=== PATIENT | female | born 1935 | race Caucasian/White ===

== ENCOUNTER 2016-12-22 13:14 | Inpatient (IN) | payer OTHER ==
[2016-12-10 08:44] VITALS: BMI 24.0
--- NOTE | 2016-12-10 09:27 | PAT Medication Instructions ---
Service Date Dec 10, 2016. Current Home Medication List Acetaminophen (Tylenol Arthritis Ext Rel), 1,300 MG PO PRN Amlodipine (Norvasc), 10 MG PO QAM Aspirin (Aspirin Ec), 81 MG PO QAM Atorvastatin (Lipitor), 80 MG PO HS Doxycycline Monohydrate (Monodox), 100 MG PO BID Furosemide (Lasix), 10 MG PO QAM Insulin Detemir (Levemir), 40 UNITS SC QPM Losartan Potassium (Cozaar), 100 MG PO QAM Metoprolol Succinate (Toprol Xl), 50 MG PO QAM Multivitamins/Minerals (Mvi With Minerals), 1 TAB PO QAM Omeprazole (Prilosec), 20 MG PO QAM Psyllium (Metamucil), 1 DOSE PO PRN [Calcium], 600 MG PO BID [Humalog], 16-30 UNITS SC TIDM [Leptin], 160 UNITS INJ QAM [Tricor], 96 MG PO QAM Medication Instructions For Your Scheduled Surgery Leptin 160 UNITS INJ QAM (check with the [facility] for instructions; bring with you to hospital on day of surgery) - Hold the following medications 24 hours prior to surgery: Tricor, 96 MG PO QAM - Hold the following medications the morning of surgery: Humalog 16-30 UNITS SC TIDM Calcium, 600 MG PO BID Psyllium (Metamucil), 1 DOSE PO PRN Multivitamins/Minerals (Mvi With Minerals), 1 TAB PO QAM Losartan Potassium (Cozaar), 100 MG PO QAM Furosemide (Lasix), 10 MG PO QAM Doxycycline Monohydrate (Monodox), 100 MG PO BID (can take after surgery) - Take the following medications the morning of surgery with a sip of water: Omeprazole (Prilosec), 20 MG PO QAM Metoprolol Succinate (Toprol Xl), 50 MG PO QAM Amlodipine (Norvasc), 10 MG PO QAM Acetaminophen (Tylenol Arthritis Ext Rel), 1,300 MG PO PRN (if needed) Aspirin (Aspirin Ec), 81 MG PO QAM - Take the following medications as scheduled the night before surgery: Calcium, 600 MG PO BID Insulin Detemir (Levemir), 40 UNITS SC QPM Atorvastatin (Lipitor), 80 MG PO HS Acetaminophen (Tylenol Arthritis Ext Rel), 1,300 MG PO PRN Doxycycline Monohydrate (Monodox), 100 MG PO BID If you have any questions please call us at [phone] or [phone] ( Anna) or [phone]
[2016-12-10 10:56] LABS: URINE APPEARANCE CLEAR (CLEAR); URINE BILIRUBIN NEG (NEG); URINE COLOR YELLOW; URINE NITRITE NEG (NEG); URINE PH 6.5 (4.5-7.5); URINE SPECIFIC GRAVITY 1.008 (1.000-1.030); UROBILINOGEN NEG (NEG)
[2016-12-10 11:04] LABS: BASO % 0.9 %; BASO ABS # 0.07 K/uL (0-0.2); COMPLETE YES; HEMATOCRIT 36.1 % (37-47); IG% 0.3 %; LYMPH % 14.8 %; LYMPH ABS # 1.13 K/uL (1.2-3.4); MEAN CELL VOLUME 86.2 fL (80-100); MEAN CORPUSCULAR HEMOGLOBIN 28.4 pg (25-34); MEAN PLATELET VOLUME 10.3 fL (7.4-10.4); MONO % 8.1 %; NEUT % 72.9 %; PLATELET COUNT 235 K/uL (130-400); RED BLOOD COUNT 4.19 M/uL (4.2-5.4); WHITE BLOOD COUNT 7.64 K/uL (4.8-10.8)
[2016-12-10 11:08] LABS: MANUAL MICROSCOPIC REQUIRED? NO; REVIEW REQ? NO
--- NOTE | 2016-12-21 08:35 | HISTORY & PHYSICAL EXAMINATION ---
DATE OF ADMISSION: 12/22/2016 HISTORY OF PRESENT ILLNESS: The patient presents to our office with a complaint of buttock pain on the left, extending down the lateral thigh to the anterior tibia. It is quite limiting in nature. It started over the summertime of 2015. She has trialed physical therapy which exacerbated her symptoms. She takes Tylenol for pain control. She has trialed an epidural injection which "took the edge off." Denies weakness or paresthesias or tingling of the lower extremities. Denies bowel or bladder dysfunction. Denies change in gait. PAST MEDICAL HISTORY: Significant for irregular heartbeat, sleep apnea with use of CPAP machine at home, diabetes requiring insulin, acid reflux, arthritis. SURGICAL HISTORY: Significant for carpal tunnel release and a bladder tuck. ALLERGIES: None listed. MEDICATIONS: Include: 1. Dymgmgp217 units once a day. 2. Humalog insulin 16-20 units 3 times a day. 3. Levemir 40 units at bedtime. 4. Omeprazole 20 mg a day. 5. Lipitor 80 mg a day. 6. Toprol-XL 50 mg a day. 7. Losartan potassium 100 mg a day. 8. Amlodipine 10 mg a day. 9. Tricor 96 mg a day. 10. Multivitamin daily. 11. Calcium 600 mg once a day. 12. Aspirin 81 mg a day. 13. Vitamin E 400 mg a day. 14. Metamucil daily. SOCIAL HISTORY: She is retired. Denies alcohol. Denies tobacco use. REVIEW OF SYSTEMS: Significant for back and left leg pain, difficulty walking. FAMILY HISTORY: Noncontributory. PHYSICAL EXAMINATION: VITAL SIGNS: She is 5 feet 1, 126 pounds. HEENT: Speech appropriate. CARDIOPULMONARY: No gross abnormalities. ABDOMEN: Soft, nontender. GENITOURINARY: Deferred. NEUROLOGIC: Cranial nerves II-XII grossly intact. MUSCULOSKELETAL: She has no atrophy of the leg. Strength is intact in bilateral lower extremities. She ambulates with a steady gait. No evidence of ankle clonus. ASSESSMENT: Herniated nucleus pulposus L4-L5 on the left. PLAN: At this point in time, she has failed conservative therapy and continues to struggle with pain and is interested in pursuing surgical intervention. Surgery would require lumbar laminectomy L4-L5 on the left. Risks, benefits, pros, cons, and alternatives were outlined in detail. She would like to proceed with the above-mentioned surgical planning. INOCENCIA
[2016-12-22] VITALS (7 sets, daily range): BP systolic 123–156; BP diastolic 51–66; PULSE 58–74; TEMP 34.8–36.5; O2SAT 91–100; BMI 24.0
[~2016-12-22] VITALS: Ht 154.9 cm; Wt 58.1 kg
--- NOTE | 2016-12-22 07:29 | History & Physical Bridge Note ---
H&P Re-Evaluation Bridge Note: I have examined the patient, reviewed the History & Physical and in the interval since the performance of the History & Physical I have noted the following changes of clinical significance: No changes noted
[~2016-12-22 13:14] MED LIST: ACET1TAB84 PO; AMLO-114 PO; ASPI81TA28 PO; ATOR-26 PO; CALC-51 PO; CEFAZOLIN 1000MG/55 ML D5W IV SCH; DOXY100C76 PO; FURO-85 PO; HUMALOG SC; LACTATED RINGER'S 1000ML 1,000 ML IV SCH; LOSA1TAB38 PO; LVMI SC; METO-217 PO; MULT-513 PO; PRLSR20 PO; PSYL0.524 PO; TRICOR PO; [UNRECOGNIZED DRUG - OTHER] INJ
[2016-12-22] MEDS ORDERED: BUPIVACAINE/EPINEPHRINE 0.5% MPF 1:200,000 30 ML VIAL ONE (15:18)
[2016-12-22] MEDS ORDERED: BACITRACIN 50000 UNIT VIAL ONE (15:18)
[2016-12-22] MEDS ORDERED: ONDANSETRON INJ 2 MG/ML 2 ML VIAL ONE (15:26)
[2016-12-22] MEDS ORDERED: MIDAZOLAM HCL 1 MG/ML 2ML VIAL ONE (15:26)
[2016-12-22] MEDS ORDERED: LIDOCAINE HCL 2% 2 ML VIAL (20MG/ML) ONE (15:26)
[2016-12-22] MEDS ORDERED: ROCURONIUM BROMIDE 10 MG/ML 5 ML VIAL ONE (15:26)
[2016-12-22] MEDS ORDERED: DEXAMETHASONE SOD INJ 4 MG/ML VIAL ONE (15:26)
[2016-12-22] MEDS ORDERED: GLYCOPYRROLATE INJ 0.2 MG/ML VIAL ONE (15:26)
[2016-12-22] MEDS ORDERED: PROPOFOL IV EMULSION 10 MG/ML 20 ML VIAL IV ONE (15:26)
[2016-12-22] MEDS ORDERED: NEOSTIGMINE METHYLSULFATE 1 MG/ML 10ML VIAL ONE (15:26)
[2016-12-22] MEDS ORDERED: FENTANYL CITRATE INJ 50 MCG/1 ML 2 ML VIAL ONE (15:26)
[2016-12-22] MEDS ORDERED: ATROPINE SULFATE 0.1 MG/ML 5ML SYR IV PRN (15:30)
[2016-12-22] MEDS ORDERED: ONDANSETRON INJ 2 MG/ML 2 ML VIAL IV PRN ×2 (15:30→17:00)
[2016-12-22] MEDS ORDERED: HYDROmorphone INJ 1 MG/ML SYR IV PRN ×2 (15:30→17:00)
[2016-12-22] MEDS ORDERED: FENTANYL CITRATE INJ 50 MCG/1 ML 2 ML VIAL IV PRN (15:30)
[2016-12-22] MEDS ORDERED: EpHEDrine SULFATE INJ 50 MG/ML AMP IV PRN (15:30)
[2016-12-22] MEDS ORDERED: NURSING VERBAL MED ORDER ONE ×2 (15:45→18:30)
[2016-12-22] MEDS ORDERED: CLINDAMYCIN 600 MG/54 ML D5W 54 ML IV SCH (16:00)
--- NOTE | 2016-12-22 16:48 | [facility] Post Operative Brief Note ---
Immediate Operative Summary Operative Date Dec 22, 2016. Pre-Operative Diagnosis Herniated nucleus pulposus L4- L5 on the left Post-Operative Diagnosis Same Procedure(s) Performed L4-L5 Lumbar Laminectomy, Decompression, Coflex at L4-L5 Surgeon Dr Jacinto Turkey Roll Maker Surgeon(s) Lg De La Torre PA-C Estimated Blood Loss 25 ml Findings hnp Specimens none
--- NOTE | 2016-12-22 16:56 | DIAGNOSTIC IMAGING REPORT ---
INTRAOPERATIVE FLUOROSCOPIC IMAGE OF THE LUMBAR SPINE CLINICAL HISTORY: Coflex. COMPARISON STUDY: No previous studies for comparison. Fluoroscopy time: 5.9 seconds. FINDINGS: A single lateral intraoperative fluoroscopic image demonstrates placement of a surgical instrument consistent with Coflex at the L4-L5 level. IMPRESSION: Intraoperative fluoroscopic image demonstrating placement of a Coflex device at the L4-L5 level. Electronically signed by: Austin Kirkpatrick M.D. 12/22/2016 4:55 PM Dictated Date/Time: 12/22/2016 4:52 PM
[2016-12-22] MEDS ORDERED: FLOSEAL HEMOSTATIC MATRIX 10ML TOP ONE (16:59)
[2016-12-22] MEDS ORDERED: MAGNESIUM HYDROXIDE SUSP 30 ML UDC PO PRN (17:00)
[2016-12-22] MEDS ORDERED: ACETAMINOPHEN 325 MG TAB PO PRN (17:00)
[2016-12-22] MEDS ORDERED: OXYCODONE HCL IR 5 MG TAB (IMMEDIATE RELEASE) PO PRN (17:00)
[2016-12-22] MEDS ORDERED: DO NOT ADMINISTER FLU VACCINE PRN ×3 (17:00)
[2016-12-22] MEDS ORDERED: DO NOT ADMINISTER PNEUMOCOCCAL VACCINE PRN ×2 (17:00)
[2016-12-22] MEDS ORDERED: ACETAMINOPHEN 500 MG TAB PO PRN (17:00)
[2016-12-22] MEDS ORDERED: PHARMACY GLYCEMIC MGMT CONSULT PRN (17:15)
--- NOTE | 2016-12-22 17:21 | OPERATIVE REPORT ---
DATE OF OPERATION: 12/22/2016 PREOPERATIVE DIAGNOSIS: Herniated nucleus pulposus, spinal stenosis L4-5. POSTOPERATIVE DIAGNOSIS: Same. PROCEDURES PERFORMED: 1. Lumbar decompression, medial facetectomy, partial discectomy L4-L5. 2. Placement of posterior instrumentation L4-L5, Coflex 12 mm in height. SURGEON: Dr. Evans Jacinto. TOOTH CUTTER PINION: DANIEL Rouse. Due to the complex nature of the procedure, the entire surgery was performed with the development assistant of DANIEL Rouse. The assistant professor of business, under direct supervision, was involved in the actual performance of all aspects of the surgical procedure including hemostasis, tissue retraction and incision, instrument management, patient positioning, and wound closure. ANESTHESIA: General. DISPOSITION: The patient awakened and taken to PACU in stable condition. HISTORY OF PATIENT'S PROBLEMS: This is a 81-year-old female that presents with above-mentioned diagnosis. After failing an extensive course of nonoperative care, elected to undergo the above-mentioned procedure. Risks, benefits, pros, cons, and alternatives were outlined in detail preoperatively. OPERATION AND FINDINGS: The patient was met with preoperatively, case discussed and all questions were addressed. At that point the patient was taken back to operative suite and after undergoing successful general intubation by the department of anesthesia was placed in prone position on Jose R table atop Brett frame. All bony prominences were well padded and the eyes were inspected to ensure there was no external pressure placed upon them. At this point, lumbar spine was prepped and draped in normal sterile fashion. Sharp dissection with the assistance of Bovie cautery was performed down to and exposing the lamina of L4, L5. A self-retaining retractor was placed. I performed a midline decompression at L4-L5, medial facetectomies with attention on the left. With the medial facetectomy, we were able to identify significantly compressed traversing L4-5 nerve root. This was mobilized medially and several loose fragments of disc material were identified and removed. The area was explored several times to ensure all disc fragments were removed and copiously irrigated and a 12 mm Coflex implant tapped into position and crimped. The incision was copiously irrigated, 10 round LYDIA drain inserted. It was closed with 1-0 Vicryl in the fascia, 2-0 Vicryl subcutaneously, 4-0 Monocryl for final skin closure. Steri-Strips and sterile dressing placed. The patient was awakened and taken to PACU in stable condition. I attest to the content of the Intraoperative Record and any orders documented therein. Any exceptio ns are noted below.
[2016-12-22] MEDS ORDERED: GLUCOSE 40% GEL 15 GM TUBE PO PRN (17:30)
[2016-12-22] MEDS ORDERED: DEXTROSE 50% 50 ML SYR IV PRN (17:30)
[2016-12-22] MEDS ORDERED: GLUCOSE 10 TABS/TUBE PO PRN (17:30)
[2016-12-22] MEDS ORDERED: GLUCAGON FOR INJ 1 MG VIAL SQ PRN (17:30)
--- NOTE | 2016-12-22 17:36 | Anesthesiology Progress Note ---
Anesthesia Post Op Note Date & Time Dec 22, 2016 at 17:36 Vital Signs Pain Intensity: 1 Vital Signs Past 12 Hours Date Time Temp Pulse Resp B/P Pulse Ox O2 Delivery O2 Flow Rate FiO2 12/22/16 17:25 66 16 122/46 97 Mask 10 12/22/16 17:15 65 16 131/58 97 Mask 10 12/22/16 17:08 36.5 66 16 152/62 100 Mask 10 12/22/16 13:35 36.5 71 20 156/59 98 Room Air Notes Mental Status: alert / awake / arousable, participated in evaluation Pt Amnestic to Procedure: Yes Nausea / Vomiting: adequately controlled Pain: adequately controlled Airway Patency, RR, SpO2: stable & adequate BP & HR: stable & adequate Hydration State: stable & adequate Anesthetic Complications: no major complications apparent
[2016-12-22] MEDS ORDERED: PROMETHAZINE HCL INJ 25 MG in SODIUM CHLORIDE 0.9% 50ML 50 ML IV PRN (18:45)
[2016-12-22] MEDS: DEXAMETHASONE INJ 6 MG in SYRINGE 0 ML IV SCH ×3 (19:17→19:40)
[2016-12-22] MEDS: SODIUM CHLORIDE 0.9% 1000ML 1,000 ML IV SCH (19:41)
--- NOTE | 2016-12-22 20:04 | Pharmacy Progress Note ---
Glycemic Control Intl Consult Date of Service Dec 22, 2016. Scope Glycemic Pharmacist consulted by Dr Jacinto on 12/22/16 for glycemic control and to write orders per [facility] inpatient glycemic control protocol Objective Weight (Kilograms): 58.100 Accuchecks BSG (last 24hrs): Test 12/22/16 13:37 12/22/16 17:12 Bedside Glucose 202 mg/dl (70-90) 146 mg/dl (70-90) Recent Pertinent Medications Outpatient Anti-diabetic Regimen: * Levemir 40units SQ PM * Humalog 16-30 units SQ TIDM * A1c = ? % Risk Factors for Insulin Resistance: * Steroids * IVF * Recent Surgery * Diet Assessment & Plan ASSESSMENT: * 81yo T2DM female with unknown degree of outpatient control - will order A1c with AM labs per protocol * Pt is maintained on SQ basal bolus insulin regimen as an outpatient * Total daily outpatient dose ~ 100+ units/day. Expect insulin needs to be slightly different for inpatient use d/t decreased PO intake (i.e. controlled CHO diet in house), IV steroids, stress, etc * Patient received dexamethasone preoperatively and will receive 3 doses post- operatively. * Steroids have their most profound effect on post-prandial hyperglycemia which is best controlled with NovoLog dosing per aggressive CF/CR. However, increasing basal insulin is sometimes warranted for RTC steroid dosing. * ADA & AACE recommend a goal blood sugar range 140-180 mg/dl for the majority of critically ill & non-critically ill patients. However, more stringent targets may be selected in individual cases. Will utilize more stringent goal of 110-140mg/dl based on patient age & comorbidities. Additionally, tighter glycemic control is warranted to facilitate wound/infection healing post- operatively. PLAN FOR INPATIENT GLYCEMIC CONTROL: Continue regimen similar to outpatient dosing - continue outpatient basal insulin + aggressive bolus insulin for steroid induced hyperglycemia * Basal insulin with Levemir 40 units SQ HS * May need to add additional one time dose in AM if BSG significantly elevated from steroids d/t long duration of action of dexamethasone * Correctional Insulin with NOVOLOG per scale ACHS or Q6hrs while NPO. Additional checks + coverage at 0000 & 0400 for RTC hyperglycemia * Goal Range: Low 110 mg/dL - High 140 mg/dL * Correction Factor: 30 mg/dL/unit * Nutritional / Prandial insulin per carb ratio of 1 unit per 10 grams CHO consumed * A1c with AM labs * Add to discharge instructions to be shared with PCP * Titrate regimen daily based on BSG trends and changes in risk factors for insulin resistance. * Please note that the plan above was derived based on current level of insulin resistance and hospital stress. These recommendations are appropriate for inpatient admission only. Plan of care upon discharge will need to be reassessed to avoid potential outpatient hypo/hyperglycemia. Thank you.
[2016-12-22] MEDS ORDERED: INSULIN DETEMIR FLEXPEN/FLEX TOUCH 100 UNITS/ML 3ML SC SCH (21:00)
[2016-12-22] MEDS ORDERED: ATORVASTATIN 40 MG TAB PO SCH (21:00)
[2016-12-22] MEDS: DOCUSATE SODIUM 100 MG CAP PO SCH (21:02)
[2016-12-22] MEDS: DOXYCYCLINE HYCLATE 100 MG CAP PO SCH (21:02)
[2016-12-22] MEDS: INSULIN ASPART 100 UNITS/ML 3 ML PEN SC SCH (21:12)
[2016-12-22] MEDS: CLINDAMYCIN IV 600 MG in DEXTROSE 5% ADD-VANTAGE 50ML 50 ML IV SCH (21:13)
[2016-12-23] MEDS: INSULIN ASPART 100 UNITS/ML 3 ML PEN SC SCH ×4 (00:24→13:06)
[2016-12-23 03:58] VITALS: BP 142/50; PULSE 73; TEMP 36.5; O2SAT 98
[2016-12-23 06:07] LABS: ESTIMATED AVERAGE GLUCOSE 169 mg/dl; HA1C FLAG Normal (Normal)
[2016-12-23] MEDS: CLINDAMYCIN IV 600 MG in DEXTROSE 5% ADD-VANTAGE 50ML 50 ML IV SCH (06:16)
[2016-12-23 07:00] VITALS: BP 132/70; PULSE 76; TEMP 36.6; O2SAT 93
[2016-12-23] MEDS: SODIUM CHLORIDE 0.9% 1000ML 1,000 ML IV SCH (07:21)
[2016-12-23] MEDS ORDERED: RXC5 PO (07:42)
--- NOTE | 2016-12-23 07:43 | Discharge Instructions ---
Discharge Instructions Admission Reason for Admission: Spinal Stenosis Discharge Discharge Diagnosis / Problem: stenosis Discharge Goals Goal(s): Improve function Activity Recommendations Activity Limitations: per Instructions/Follow-up section . Instructions / Follow-Up Instructions / Follow-Up ACTIVITY RECOMMENDATIONS: SELF CARE INSTRUCTIONS AFTER A LAMINECTOMY 1. No prolonged sitting (less than 30 minutes for the first 3 weeks after surgery). 2. No bending, lifting more than 5 pounds, or twisting (roll like a log when turning in bed). 3. You may shower 3 days after surgery if no drainage from wound. Thoroughly dry wound. Do not soak in the tub. 4. Please walk as much as you can for exercise. Gradually increase the distance that you walk as your endurance increases. 5. You may drive in 7-10 days if you are comfortable and no longer requiring pain medications. SPECIAL CARE INSTRUCTIONS: VERY IMPORTANT TO READ AND REVIEW A. Your surgical incision has been closed with a cosmetic suture under the skin that will dissolve in about 6 weeks. In 14 days, you can use a pair of clean scissors and cut the suture that is left outside of the skin at the ends of your incision. B. Complications are uncommon, but please contact us if you have any signs or symptoms of: 1. wound infection (fever higher than 102.5 degrees F, redness, separation of wound, drainage, or increasing pain from the incision) 2. blood clots in legs (pain, swelling, redness and warmth in legs) 3. urinary tract infection (fever higher than 102.5 degrees, burning upon urination or increased frequency of urination) 4. nerve problems (inability to walk on your toes or heels, numbness, loss of bowel or bladder control) 5. any other symptoms that concern you. C. Please call the office at if you have any concerns or questions about your operation or recovery. MANAGING PAIN AFTER SPINAL SURGERY 1. Narcotic medication is intended for short-term use and will be provided for surgical pain. Surgical pain usually lasts for a period of 4-6 weeks. Narcotic medication includes Percocet, Vicodin, Darvocet, Tylenol #3 or Lortab. 2. Longer-term pain is more appropriately treated with non-narcotic medication such as Tylenol ES. 3. Muscle spasm is not appropriately treated with narcotics. Muscle relaxers such as Soma, Flexeril or Skelaxin can be used along with Tylenol ES. 4. Remember that we all live with some "aches and pains". This is not unusual or uncommon after an injury or as we get older. 5. We will provide appropriate medication within the normal guidelines of their prescribed use. We will also be very cautious and aware of potential abuse and extended duration of patients' medication needs. 6. Please allow 2-3 days to process refills. Prescriptions will not be mailed but must be picked up at the office. FOLLOW UP VISIT: Keep your scheduled follow-up appointment. Any questions, please call the office at . Current Hospital Diet Patient's current hospital diet: Diabetes Type 2 Diet Discharge Diet Recommended Diet: Regular Diet Procedures Procedures Performed: L4-L5 Lumbar Laminectomy, Decompression, Coflex at L4-L5 Pending Studies Studies pending at discharge: no Laboratory Results Hemoglobin A1c Test 12/23/16 05:14 Range/Units Estimated Average Glucose 169 mg/dl Hemoglobin A1c 7.5 H 4.5-5.6 % Medical Emergencies . Who to Call and When: Medical Emergencies: If at any time you feel your situation is an emergency, please call 911 immediately. . Non-Emergent Contact Non-Emergency issues call your: Primary Care Provider . "Provider Documentation" section prepared by Evans Jacinto. VTE Core Measure Inpt VTE Proph given/why not?: Justin Becker, SCD's
[2016-12-23] MEDS: DOXYCYCLINE HYCLATE 100 MG CAP PO SCH (08:51)
[2016-12-23] MEDS: DOCUSATE SODIUM 100 MG CAP PO SCH (08:52)
[2016-12-23] MEDS ORDERED: METOPROLOL SUCC 50MG EXT REL TAB PO SCH (09:00)
[2016-12-23] MEDS ORDERED: AMLODIPINE BESYLATE 5 MG TAB PO SCH (09:00)
[2016-12-23] MEDS ORDERED: FUROSEMIDE 20 MG TAB PO SCH (09:00)
[2016-12-23] MEDS ORDERED: LOSARTAN POTASSIUM 50 MG TAB PO SCH (09:00)
[2016-12-23] MEDS ORDERED: ASPIRIN 81 MG ECTAB PO SCH (09:00)
[2016-12-23] MEDS ORDERED: PANTOprazole SOD 40 MG TAB PO SCH (09:00)
[2016-12-23] MEDS ORDERED: NURSING VERBAL MED ORDER ONE (10:15)
[2016-12-23] MEDS ORDERED: COUGH DROP (SUGAR FREE) LOZ 24 LOZ/1 BOX PO PRN (10:30)
[2016-12-23 10:55] VITALS: BP 156/61; PULSE 105; O2SAT 90
[2016-12-23 11:58] VITALS: BP 154/74; PULSE 66; TEMP 37; O2SAT 95
[2016-12-23 12:00] VITALS: Ht 154.9 cm; Wt 58.1 kg
[2016-12-23] MEDS ORDERED: HOME MED ADMINISTRATION ONE (12:30)
[2016-12-23 13:27] VITALS: BP 154/74; PULSE 66; TEMP 37; O2SAT 95
--- NOTE | 2016-12-23 14:20 | Pharmacy Progress Note ---
Glycemic: Assessment & Plan Date of Service Dec 23, 2016. Assessment & Plan Recent Pertinent Medications Outpatient Anti-diabetic Regimen: * Levemir 40units SQ PM * Humalog 16-30 units SQ TID with meals * A1c = 7.5% 12/23/16 Risk Factors for Insulin Resistance: * IVF * Recent Surgery * Diet Assessment & Plan ASSESSMENT: * 81yo T2DM female with adequate glycemic control per A1c. * Pt is maintained on SQ basal bolus insulin regimen as an outpatient * Total daily outpatient dose ~ 100+ units/day. Expect insulin needs to be slightly different for inpatient use d/t decreased PO intake (i.e. controlled CHO diet in house), IV steroids, stress, etc * Patient received dexamethasone preoperatively (post op dosing was not given) * Steroids have their most profound effect on post-prandial hyperglycemia which is best controlled with NovoLog dosing per aggressive CF/CR. However, increasing basal insulin is sometimes warranted for RTC steroid dosing. * ADA & AACE recommend a goal blood sugar range 140-180 mg/dl for the majority of critically ill & non-critically ill patients. However, more stringent targets may be selected in individual cases. Will utilize more stringent goal of 110-140mg/dl based on patient age & comorbidities. Additionally, tighter glycemic control is warranted to facilitate wound/infection healing post- operatively. * Fasting BSG slightly below goal today * reduce Lantus dose * since post op dexamethasone not given, will empirically loosen CF/CR PLAN FOR INPATIENT GLYCEMIC CONTROL: * Basal insulin with Levemir 30 units SQ HS * Correctional Insulin with NOVOLOG per scale ACHS or Q6hrs while NPO. Additional checks + coverage at 0000 & 0400 for RTC hyperglycemia * Goal Range: Low 110 mg/dL - High 140 mg/dL * Correction Factor: 35 mg/dL/unit * Nutritional / Prandial insulin per carb ratio of 1 unit per 15 grams CHO consumed * A1c added to discharge instructions to be shared with PCP * Titrate regimen daily based on BSG trends and changes in risk factors for insulin resistance. * Please note that the plan above was derived based on current level of insulin resistance and hospital stress. These recommendations are appropriate for inpatient admission only. Plan of care upon discharge will need to be reassessed to avoid potential outpatient hypo/hyperglycemia. Thank you.
--- NOTE | 2016-12-23 17:32 | DISCHARGE SUMMARY ---
PRINCIPAL DIAGNOSES: Herniated nucleus pulposus and spinal stenosis. HOSPITAL COURSE: On 12/22/2016, the patient underwent decompression and implantation of Coflex, tolerated this well and taken to the orthopedic floor postoperatively. Postop day #1, leg pain was markedly improved, pain well controlled. Subsequently, she was discharged home. Discharge orders and instructions found on the chart for further review.
[2016-12-23] MEDS ORDERED: INSULIN DETEMIR FLEXPEN/FLEX TOUCH 100 UNITS/ML 3ML SC SCH (21:00)
[2016-12-24] MEDS ORDERED: BISACODYL 10 MG SUPP PR PRN (06:00)
[2016-12-24] MEDS ORDERED: BISACODYL 5 MG TABEC PO PRN (06:00)
[2016-12-24] MEDS ORDERED: [UNRECOGNIZED DRUG - OTHER] INJ SCH (13:21)
[2016-12-25] MEDS ORDERED: POLYETHYLENE (MIRALAX) 17 GM PACK PO SCH (09:00)
== END 2016-12-23 14:19 | disposition home or self-care (01) | DRG 518 ==
LOC: ENRESERVDT → ENRESERVTM → C.ACU 13:14 → C.3E 15:00
PROVIDERS: ADMIT Orthopaedic Surgery Orthopaedic Surgery of the Spine; ATTEND Orthopaedic Surgery Orthopaedic Surgery of the Spine
PROC: 0SH00BZ Insertion of Interspinous Process Spinal Stabilization Device into Lumbar Vertebral Joint, Open Approach (ICD-10-PCS; principal; 2016-12-22 13:45)
PROC: 0SB20ZZ Excision of Lumbar Vertebral Disc, Open Approach (ICD-10-PCS; principal; 2016-12-22 13:45)
DX: M51.26 Other intervertebral disc displacement, lumbar region (principal); M48.06 Spinal stenosis, lumbar region; G47.30 Sleep apnea, unspecified; E11.9 Type 2 diabetes mellitus without complications; I49.9 Cardiac arrhythmia, unspecified; K21.9 Gastro-esophageal reflux disease without esophagitis; Z79.899 Other long term (current) drug therapy; Z79.4 Long term (current) use of insulin; Z79.82 Long term (current) use of aspirin